=== PATIENT | female | born 1980 | race Caucasian/White ===

== ENCOUNTER 2024-07-04 16:22 | Inpatient (IN) | payer MEDICAID, SELFPAY ==
[2024-07-04 16:26] VITALS: BP 119/69; PULSE 72; RESP 22; TEMP 36.6; O2SAT 94
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
[2024-07-04 17:04] LABS: Basophils % 0.3 %; Eosinophils # 0.2 10^3/uL (0.0-0.8); Eosinophils % 1.7 %; Lymphocytes # 2.4 10^3/uL (0.8-4.8); Lymphocytes % 23.7 %; Mean Corpuscular HGB Conc 33.3 g/dL (30-55); Mean Corpuscular Hemoglobin 30.6 pg (27-33); Mean Platelet Volume 9.9 fL (7.4-10.4); Monocytes % 10.3 %; Neutrophils # 6.34 10^3/uL (1.8-7.7); Nucleated Red Blood Cells % 0 %; Platelet Count 224 10^3/cmm (157-399); Red Blood Count 4.35 10^6/uL (3.85-5.65); Red Cell Distribution Width 12.4 % (12.1-15.1); White Blood Count 10.07 10^3/uL (3.29-11.43)
[2024-07-04 17:09] LABS: Bacteria Urine 1+ /hpf; Hyaline Casts Urine 1.65 /lpf; RBC Urine 0-2 /hpf (0-2); Squamous Epithelial Cell Urine 0-5 /hpf (0-5); WBC Urine 0-5 /hpf (0-5)
[2024-07-04 17:16] LABS: Amphetamines Screen Urine Negative (Negative); Barbiturates Screen Urine Negative (Negative); Benzodiazepines Screen Urine Negative (Negative); Cocaine Screen Urine Negative (Negative); Opiate Screen Urine Negative (Negative); PCP Screen Urine Negative (Negative); THC Screen Urine Negative (Negative)
[2024-07-04 17:17] LABS: Add Urine Culture? No; Add Urine Microscopic? YES; Bilirubin Urine Neg (Negative); Blood Urine Neg (Negative); Glucose Urine UA Norm (Normal); Ketones Urine Negative (Negative); Leukocyte Esterase Urine Negative (Negative); Nitrate Urine Negative (Negative); Protein Urine Neg (Negative); Urine Appearance Slightly Cloudy (CLEAR); Urine Color Yellow (Yellow); Urobilinogen Urine Norm (Negative); pH Urine 5 (5-7)
--- NOTE | 2024-07-04 17:26 | XRR_ITS ---
PROCEDURE INFORMATION: Exam: XR Left Ankle Exam date and time: 07/04/2024 5:29 PM Age: 43 years old Clinical indication: Pain; Ankle; Left; Prior surgery; Surgery date: 6+ months; Surgery type: Plate and screws TECHNIQUE: Imaging protocol: Radiologic exam of the left ankle. Views: 3 or more views. COMPARISON: No relevant prior studies available. FINDINGS: Bones/joints: Intact metallic plate is seen anchored to the distal fibula with multiple intact screws. No osseous deformities. No acute findings. Ankle mortise appears in anatomic alignment. Mild degenerative changes are seen in the tibiotalar articulation. Soft tissues: Normal. XR/XR ankle LT min 3V* [id number] IMPRESSION: No acute findings.
--- NOTE | 2024-07-04 17:26 | CTR_ITS ---
PROCEDURE INFORMATION: Exam: CT Head Without Contrast Exam date and time: 07/04/2024 5:37 PM Age: 43 years old Clinical indication: Other: Confusion TECHNIQUE: Imaging protocol: Computed tomography of the head without contrast. Radiation optimization: All CT scans at this facility use at least one of these dose optimization techniques: automated exposure control; mA and/or kV adjustment per patient size (includes targeted exams where dose is matched to clinical indication); or iterative reconstruction. COMPARISON: No relevant prior studies available. RADIATION DOSE METRICS: Total DLP (mGy-cm): 1099.58 FINDINGS: Brain: Normal. No hemorrhage. Unremarkable white matter. No mass effect. Cerebral ventricles: No ventriculomegaly. Paranasal sinuses: Visualized sinuses are unremarkable. No fluid levels. Mastoid air cells: Visualized mastoid air cells are well aerated. Bones: Unremarkable. No acute fracture. Soft tissues: Unremarkable. CT/CT head wo con* [id number] IMPRESSION: No acute intracranial abnormality.
[2024-07-04 17:27] LABS: Alanine Aminotransferase 16 U/L (0-33); Albumin Level 3.9 g/dL (3.5-5.2); Alkaline Phosphatase 80 U/L (35-105); Anion Gap 13.5 (5-19); Aspartate Amino Transferase 11 U/L (0-32); Blood Urea Nitrogen 17 mg/dL (6-20); Carbon Dioxide 23 mmol/L (22-29); Chloride 105 mmol/L (98-107); Globulin 2.6 g/dL (1.3-4.6); Glomerular Filtration Rate 109.6 mL/min (90-130); Glucose 112 mg/dL (65-115); Osmolality Calculated 286 mOsm/kg (285-295); Potassium 4.5 mmol/L (3.5-5.1); Sodium 137 mmol/L (136-145); Total Bilirubin 0.2 mg/dL (0.15-1.2); Total Protein 6.5 g/dL (6.6-8.7)
[2024-07-04 17:29] LABS: Acetaminophen < 5.0 ug/mL (10-30); Alcohol Level < 10 mg/dL (0-10); Salicylate < 0.3 mg/dL (3-10)
[2024-07-04 17:31] LABS: Glucose Point of Care 120 mg/dL (70-110)
[2024-07-04 17:59] LABS: HCG, Serum Qual Negative (Negative)
[2024-07-04 18:25] VITALS: BP 123/84; PULSE 77; RESP 18; TEMP 36.3; O2SAT 95
[2024-07-04 19:51] VITALS: BP 123/84; PULSE 77; RESP 18; TEMP 36.3; O2SAT 95
[2024-07-04] MEDS: HYDROcodone-acetaminophen 7.5-325 mg Tablet 1 TAB PO (21:34)
[2024-07-04] MEDS: OLANZapine 10 mg TABLET PO (21:35)
[2024-07-04] MEDS: pantoprazole DR 40 mg Tablet PO (21:35)
[2024-07-04] MEDS: risperiDONE 1 mg Tablet 1.5 MG PO (21:35)
[2024-07-04] MEDS: atorvastatin 40 mg Tablet PO (21:35)
--- NOTE | 2024-07-04 21:45 | PC.NURSE ---
While pulling bedtime medications there was a problem with the Pixus. It would only allow medications to be pulled one at a time; each time a medication was pulled the Pixus would KICK ME OUT requiring me to log back in for each individual medication. In addition, the pixus was not acknowledging that the medications were pulled! This made it APPEAR that the medications were NOT PULLED even though they were indeed pulled and given. The medications in question (ALL PO) for this patient are as follows : LIPITOR 40MG, ZYPREXA 10MG, PROTONIX 40MG, RISPERIDONE 1.5MG (0.5MG WASTED) AND NORCO 7.5/325MG. This may ADVERSELY AFFECT the NARCOTIC COUNT as it would not allow me to put in the count. There were three displays on the Pixus: #1 CRITICAL OVERRIDE . #2 PATIENT DATA MAY NOT BE CURRENT : PATIENT INTERFACE PROBLEM FOR 9M . #3 PATIENT ORDERS MAY NOT BE CURRENT : ORDER INTERFACE PROBLEM FOR 20M . Keshia JERNIGAN the warehouse operator was notified and advised that I check with / notify IT in case there was an update that we were unaware of. I checked with IT and they said they were not updating at this time. They suggested that I check with pharmacy in the morning. That is what I will do.
[2024-07-05] MEDS: nicotine 2 mg Gum BUCCAL (02:50)
[2024-07-05] MEDS: ibuprofen 600 mg Tablet PO ×2 (03:10→03:11)
[2024-07-05] MEDS: HYDROcodone-acetaminophen 7.5-325 mg Tablet 1 TAB PO ×3 (05:33→20:25)
[2024-07-05 05:35] VITALS: BP 133/85; PULSE 85; RESP 18; TEMP 36.4; O2SAT 96
[2024-07-05 07:48] LABS: Glucose Point of Care 188 mg/dL (70-110)
[2024-07-05] MEDS: nicotine 4 mg lozenge MUCOUS MEM (09:09)
[2024-07-05] MEDS: ezetimibe 10 mg Tablet PO (09:09)
[2024-07-05] MEDS: buPROPion XL (24 HR) 150 mg Tablet PO (09:09)
[2024-07-05] MEDS: baclofen 10 mg Tablet 20 MG PO ×3 (09:10→20:22)
[2024-07-05 09:12] VITALS: BP 133/88
[2024-07-05] MEDS: losartan 50 mg Tablet 25 MG PO (09:12)
[2024-07-05] MEDS: gabapentin 400 mg Capsule 800 MG PO ×3 (09:12→20:21)
[2024-07-05] MEDS: metoprolol tartrate 50 mg Tablet 100 MG PO (09:13)
[2024-07-05] MEDS: risperiDONE 1 mg Tablet PO (09:13)
[2024-07-05] MEDS: cetirizine 10 mg Tablet PO (09:13)
[2024-07-05] MEDS: montelukast sodium 10 mg Tablet PO (09:13)
[2024-07-05] MEDS: OXcarbazepine 300 mg Tablet 600 MG PO ×2 (09:14→17:49)
[2024-07-05] MEDS: acetaminophen 325 mg Tablet 650 MG PO (09:15)
[2024-07-05] MEDS: nicotine 21 mg Patch 1 PATCH TRANSDERMA (11:38)
[2024-07-05 14:00] VITALS: BP 137/83; PULSE 77; RESP 16; TEMP 36.9; O2SAT 95
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
[2024-07-05] MEDS: hyDROXYzine 25 mg Capsule 50 MG PO (16:36)
[2024-07-05 16:57] LABS: Glucose Point of Care 105 mg/dL (70-110)
[2024-07-05] MEDS: zolpidem 5 mg Tablet PO (20:21)
[2024-07-05] MEDS: atorvastatin 40 mg Tablet PO (20:21)
[2024-07-05] MEDS: pantoprazole DR 40 mg Tablet PO (20:21)
[2024-07-05] MEDS: risperiDONE 1 mg Tablet 1.5 MG PO (20:22)
[2024-07-05 20:40] VITALS: BP 128/80; PULSE 75; RESP 18; TEMP 36.5; O2SAT 99
--- NOTE | 2024-07-06 00:12 | PC.NURSE ---
07/05/241929 Pt is sitting on bench by telephone, near nursing station, encouraging peers to be unreasonable/hateful toward staff et intrusively approaching staff with demands (repetitively), despite being educated on process of obtaining the related orders. New admit is being assisted by staff, et Joyce continues to intrude et speak for the patient. She is redirected, however returns et will not allow patient to speak for herself without staff intervening. Staff redirects Joyce to take a shower, however she returns to hover over new admit (is also her roommate). Staff continues to intervene et Joyce cycles between such behaviors [place] [facility] [place] request same tasks/ demands as previous without cease. [id number] Joyce is now resting in bed with eyes closed, absent of s/sx of distress. Nursing continues to monitor for needs et changes.
[2024-07-06] MEDS: ibuprofen 600 mg Tablet PO (01:57)
[2024-07-06] MEDS: HYDROcodone-acetaminophen 7.5-325 mg Tablet 1 TAB PO (04:46)
[2024-07-06 06:00] VITALS: BP 117/63; PULSE 75; RESP 18; TEMP 36.6; O2SAT 97
[2024-07-06 07:23] LABS: Glucose Point of Care 88 mg/dL (70-110)
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
[2024-07-06 08:08] VITALS: BP 117/63
[2024-07-06] MEDS: losartan 50 mg Tablet 25 MG PO (08:08)
[2024-07-06] MEDS: montelukast sodium 10 mg Tablet PO (08:08)
[2024-07-06] MEDS: baclofen 10 mg Tablet 20 MG PO (08:08)
[2024-07-06] MEDS: metoprolol tartrate 50 mg Tablet 100 MG PO (08:09)
[2024-07-06] MEDS: gabapentin 400 mg Capsule 800 MG PO (08:09)
[2024-07-06] MEDS: OXcarbazepine 300 mg Tablet 600 MG PO (08:09)
[2024-07-06] MEDS: hyDROXYzine 25 mg Capsule 50 MG PO (08:09)
[2024-07-06] MEDS: cetirizine 10 mg Tablet PO (08:09)
[2024-07-06] MEDS: nicotine 21 mg Patch 1 PATCH TRANSDERMA (08:09)
[2024-07-06] MEDS: buPROPion XL (24 HR) 150 mg Tablet PO (08:09)
[2024-07-06] MEDS: ezetimibe 10 mg Tablet PO (08:09)
[2024-07-06 08:43] VITALS: BP 117/63; PULSE 75; RESP 18; TEMP 36.6; O2SAT 97
== END 2024-07-06 10:33 | disposition home or self-care (01) | DRG 885 ==
LOC: ER 17:51 → NP 17:58
PROVIDERS: Admitting Provider Psychiatry & Neurology Psychiatry; Emergency Provider Family Medicine; Visit Provider Psychiatry & Neurology Psychiatry
DX: F31.60 Bipolar disorder, current episode mixed, unspecified (principal); Z68.43 Body mass index [BMI] 50.0-59.9, adult; F41.1 Generalized anxiety disorder; F17.210 Nicotine dependence, cigarettes, uncomplicated; Z79.891 Long term (current) use of opiate analgesic; M79.7 Fibromyalgia; I34.1 Nonrheumatic mitral (valve) prolapse; I48.91 Unspecified atrial fibrillation; E66.9 Obesity, unspecified; E11.9 Type 2 diabetes mellitus without complications; Z79.85 Long-term (current) use of injectable non-insulin antidiabetic drugs
CPT/HCPCS: 36415; 36416; 70450; 73610; 80053; 80306; 80307; 81001; 82962; 84703; 85025; 97150; 97165; 99285; J9999